=== PATIENT | male | born 1955 | race Caucasian/White ===

== ENCOUNTER 2018-07-21 01:56 | Inpatient (IN) | payer BC ==
[~2018-07-21] VITALS: Ht 177.8 cm; Wt 86.2 kg
[2018-07-21] MEDS ORDERED: ENAL1TAB35 PO (02:09)
[2018-07-21] MEDS ORDERED: DULA1.5P IM (02:09)
[2018-07-21] MEDS ORDERED: FLUT1DIS28 IH (02:09)
[2018-07-21] MEDS ORDERED: TAMS0.4C25 PO (02:09)
[2018-07-21] MEDS ORDERED: NS(*) 0.9% 1000 ML BAG 1,000 ML IV ONE (02:26)
[2018-07-21] MEDS ORDERED: ONDANSETRON 4 MG/2 ML VIAL IVP ONE (02:30)
[2018-07-21] MEDS ORDERED: HYDROMORPHONE HCL 1 MG/ML SYRINGE IVP ONE ×2 (02:30→05:35)
--- NOTE | 2018-07-21 02:32 | ER Report ---
History and Physical Time Seen By MD: 02:13 Hx. of Stated Complaint: PT HAS HX OF BOWEL OBSTRUCTIONS AND REPORTS FEELING THE SAME WAY. PT REPORTS VOMITING AT HOME. HPI/ROS CHIEF COMPLAINT: vomiting and abdominal pain, worried about possible bowel obstruction. HISTORY OF PRESENT ILLNESS: This is a 62 year old male. Had some pain in abdomen and nausea a few days ago. This went away, then suddenly came back tonight. Had sudden onset of pain and vomiting. Pain in lower abdomen, worse on left lower area. Had a large bowel movement at the same time. Normal urination. No fevers or chills. Still nauseated, but less. Seems similar to prior bowel obstructions. Has had several surgeries, the last was lysis of adhesions for obstruction. Last bowel obstruction just treated conservatively and resolved without need for surg chaya. Traveling home to [place] from visiting matteo carbajal in [place]. Allergies: Coded Allergies: No Known Drug Allergies (Unverified , 07/21/18) Home Meds Reported Medications Fluticasone/Salmeterol (ADVAIR 250-50 DISKUS) 1 Each Disk.w.dev, 1 EACH IH BID 07/21/18 Enalapril/Hydrochlorothiazide (ENALAPRIL-HCTZ 10-25 MG TABLET) 1 Each Tablet, 1 EACH PO QDAY 07/21/18 Tamsulosin Hcl (FLOMAX) 0.4 Mg Cap.er.24h, 0.4 MG PO BID, CAP 07/21/18 Dulaglutide (Trulicity) 1.5 Mg/0.5 Ml Pen.injctr, 1 PEN IM DIRECTED 07/21/18 Reviewed Nurses Notes: Yes Hx Substance Use Disorder: No Hx Alcohol Use: No Constitutional Vital Sign - Last 24 Hours 07/21/18 07/21/18 07/21/18 07/21/18 02:00 02:00 02:11 02:30 Temp 98.2 Pulse 82 87 Resp 18 B/P (MAP) 123/83 (96) 123/83 135/79 (97) Pulse Ox 92 90 O2 Delivery Room Air 07/21/18 07/21/18 07/21/18 07/21/18 02:47 02:56 03:00 03:26 Pulse 82 74 B/P (MAP) 117/79 (92) Pulse Ox 93 97 O2 Flow Rate 2.0 07/21/18 07/21/18 07/21/18 07/21/18 03:30 04:00 04:20 04:30 B/P (MAP) 116/76 (89) 121/79 (93) 108/74 (85) Pulse Ox 92 07/21/18 07/21/18 07/21/18 04:50 05:00 05:05 Pulse 75 72 B/P (MAP) 114/75 (88) Pulse Ox 94 94 Physical Exam General Appearance: The patient is alert. No acute distress. Eyes: Pupils are equal, round. No pallor, injection or icterus. ENT: Mucous membranes are moist. Normal oral mucosa. Posterior oropharynx is normal. Neck: Supple and non tender. Respiratory: Lungs are clear to auscultation. Cardiovascular: Regular rate and rhythm. No murmurs, gallops or rubs. Normal capillary refill. Gastrointestinal: Abdomen is soft, but somewhat distended. Has pain in lower abdomen, with some slight rebound and guarding. Hyperactive bowel sounds. Neurological: Alert and oriented x3. No focal neurologic deficits Skin: Warm and dry. DIFFERENTIAL DIAGNOSIS: After history and physical exam, differential diagnosis was considered for patient with abdominal pain and vomiting, history of bowel obstructions, feels like this again and we'll need to rule out various causes of abdominal pain and vomiting. Medical Decision Making Data Points Result Diagram: 07/21/18 0237 07/21/18 0237 Laboratory Hematology Test 07/21/18 02:37 07/21/18 03:15 Red Blood Count 5.38 M/uL (4.00-5.60) Mean Corpuscular Volume 87.1 fL (80.0-96.0) Mean Corpuscular Hemoglobin 29.7 pg (26.0-33.0) Mean Corpuscular Hemoglobin Concent 34.1 g/dL (32.0-36.0) Red Cell Distribution Width 16.5 % (11.5-14.5) Mean Platelet Volume 7.5 fL (7.2-11.1) Neutrophils (%) (Auto) 86.6 % (39.4-72.5) Lymphocytes (%) (Auto) 6.1 % (17.6-49.6) Monocytes (%) (Auto) 5.2 % (4.1-12.4) Eosinophils (%) (Auto) 1.3 % (0.4-6.7) Basophils (%) (Auto) 0.8 % (0.3-1.4) Nucleated RBC Relative Count (auto) 0.1 /100WBC Neutrophils # (Auto) 13.8 K/uL (2.0-7.4) Lymphocytes # (Auto) 1.0 K/uL (1.3-3.6) Monocytes # (Auto) 0.8 K/uL (0.3-1.0) Eosinophils # (Auto) 0.2 K/uL (0.0-0.5) Basophils # (Auto) 0.1 K/uL (0.0-0.1) Nucleated RBC Absolute Count (auto) 0.01 K/uL Sodium Level 140 mmol/L (137-145) Potassium Level 3.8 mmol/L (3.5-5.0) Chloride Level 101 mmol/L (98-107) Carbon Dioxide Level 25 mmol/L (22-30) Blood Urea Nitrogen 29 mg/dl (9-21) Creatinine 1.00 mg/dl (0.66-1.25) Glomerular Filtration Rate Calc > 60.0 Random Glucose 114 mg/dl (75-110) Calcium Level 9.9 mg/dl (8.4-10.2) Total Bilirubin 0.4 mg/dl (0.2-1.3) Aspartate Amino Transf (AST/SGOT) 17 U/L (0-35) Alanine Aminotransferase (ALT/SGPT) 18 U/L (0-56) Alkaline Phosphatase 80 U/L (0-126) Total Protein 8.7 g/dl (6.3-8.2) Albumin 4.9 g/dl (3.5-5.0) Amylase Level 131 U/L (0-110) Lipase 149 U/L (23-300) Urine Color Yellow Urine Clarity Clear Urine pH 5.0 pH (4.8-9.5) Urine Specific [place] 1.035 Urine Protein Negative mg/dL (NEGATIVE) Urine Glucose (UA) 500 mg/dL (NEGATIVE) Urine Ketones Negative mg/dL (NEGATIVE) Urine Blood Negative (NEGATIVE) Urine Nitrite Negative (NEGATIVE) Urine Bilirubin Negative (NEGATIVE) Urine Urobilinogen 2.0 mg/dL (0.2-1.9) Urine Leukocyte Esterase Negative (NEGATIVE) Urine RBC 1 /HPF (0-2/HPF) Urine WBC 1 /HPF (0-5/HPF) Urine Squamous Epithelial Cells None /LPF (</=FEW) Urine Bacteria Negative /HPF (NONE-FEW) Urine Mucus None /HPF (NONE-FEW) Chemistry Test 07/21/18 02:37 07/21/18 03:15 White Blood Count 15.9 k/uL (4.5-11.0) Red Blood Count 5.38 M/uL (4.00-5.60) Hemoglobin 16.0 g/dL (14.0-18.0) Hematocrit 46.9 % (42.0-52.0) Mean Corpuscular Volume 87.1 fL (80.0-96.0) Mean Corpuscular Hemoglobin 29.7 pg (26.0-33.0) Mean Corpuscular Hemoglobin Concent 34.1 g/dL (32.0-36.0) Red Cell Distribution Width 16.5 % (11.5-14.5) Platelet Count 244 K/uL (150-450) Mean Platelet Volume 7.5 fL (7.2-11.1) Neutrophils (%) (Auto) 86.6 % (39.4-72.5) Lymphocytes (%) (Auto) 6.1 % (17.6-49.6) Monocytes (%) (Auto) 5.2 % (4.1-12.4) Eosinophils (%) (Auto) 1.3 % (0.4-6.7) Basophils (%) (Auto) 0.8 % (0.3-1.4) Nucleated RBC Relative Count (auto) 0.1 /100WBC Neutrophils # (Auto) 13.8 K/uL (2.0-7.4) Lymphocytes # (Auto) 1.0 K/uL (1.3-3.6) Monocytes # (Auto) 0.8 K/uL (0.3-1.0) Eosinophils # (Auto) 0.2 K/uL (0.0-0.5) Basophils # (Auto) 0.1 K/uL (0.0-0.1) Nucleated RBC Absolute Count (auto) 0.01 K/uL Glomerular Filtration Rate Calc > 60.0 Calcium Level 9.9 mg/dl (8.4-10.2) Total Bilirubin 0.4 mg/dl (0.2-1.3) Aspartate Amino Transf (AST/SGOT) 17 U/L (0-35) Alanine Aminotransferase (ALT/SGPT) 18 U/L (0-56) Alkaline Phosphatase 80 U/L (0-126) Total Protein 8.7 g/dl (6.3-8.2) Albumin 4.9 g/dl (3.5-5.0) Amylase Level 131 U/L (0-110) Lipase 149 U/L (23-300) Urine Color Yellow Urine Clarity Clear Urine pH 5.0 pH (4.8-9.5) Urine Specific [place] 1.035 Urine Protein Negative mg/dL (NEGATIVE) Urine Glucose (UA) 500 mg/dL (NEGATIVE) Urine Ketones Negative mg/dL (NEGATIVE) Urine Blood Negative (NEGATIVE) Urine Nitrite Negative (NEGATIVE) Urine Bilirubin Negative (NEGATIVE) Urine Urobilinogen 2.0 mg/dL (0.2-1.9) Urine Leukocyte Esterase Negative (NEGATIVE) Urine RBC 1 /HPF (0-2/HPF) Urine WBC 1 /HPF (0-5/HPF) Urine Squamous Epithelial Cells None /LPF (</=FEW) Urine Bacteria Negative /HPF (NONE-FEW) Urine Mucus None /HPF (NONE-FEW) Urinalysis Test 07/21/18 03:15 Urine Color Yellow Urine Clarity Clear Urine pH 5.0 pH (4.8-9.5) Urine Specific [place] 1.035 Urine Protein Negative mg/dL (NEGATIVE) Urine Glucose (UA) 500 mg/dL (NEGATIVE) Urine Ketones Negative mg/dL (NEGATIVE) Urine Blood Negative (NEGATIVE) Urine Nitrite Negative (NEGATIVE) Urine Bilirubin Negative (NEGATIVE) Urine Urobilinogen 2.0 mg/dL (0.2-1.9) Urine Leukocyte Esterase Negative (NEGATIVE) Urine RBC 1 /HPF (0-2/HPF) Urine WBC 1 /HPF (0-5/HPF) Urine Squamous Epithelial Cells None /LPF (</=FEW) Urine Bacteria Negative /HPF (NONE-FEW) Urine Mucus None /HPF (NONE-FEW) EKG/Imaging Imaging EXAMINATION: Abdomen and pelvis CT with contrast HISTORY: Vomiting, lower abdominal pain, history of bowel obstruction TECHNIQUE: CT was performed through the abdomen and pelvis following injection of iodinated intravenous contrast. Sagittal and coronal MPR reformatted images were generated. 75 mL isovue 370 injected. One of the following dose optimization techniques was utilized in the performance of this exam: automated exposure control; adjustment of the mA and/or kV according to patient size; or use of iterative reconstruction technique. Specific details can be referenced in the facility's radiology CT exam operational policy. COMPARISON: None. FINDINGS: Lower chest: Normal. Spleen: Normal. Adrenal glands: Normal. Pancreas: Normal. Kidneys: Small left renal cyst, otherwise normal. Gallbladder: Surgically absent. Liver: Mild intrahepatic biliary dilatation related to absence of the g allbladder. Otherwise unremarkable. Vessels: Normal for age. Lymph node assessment: Normal. Bowel including small bowel, colon and appendix: Normal stomach. Mild short segment dilatation of small bowel loops in the left midabdomen, image 69, right midabdomen, image 90 and upper pelvis, image 113. Decompressed lower abdomen small bowel loops adjacent to hernia repair material along the anterior right abdomen. Appendix not identified. Moderate volume colonic stool. Normal colon. Peritoneum / retroperitoneum / mesentery: Normal. Pelvic structures: Normal bladder. Small fat-containing left inguinal hernia. Enlarged prostate gland measures 6 cm transverse. Normal rectum. No pelvic fluid or adenopathy. Body wall: Postsurgical scar along the anterior right abdominal subcutaneous fat. Hernia repair material along the right anterior abdominal wall is partially positioned in the anterior abdominal cavity positioned adjacent to small bowel loops. Musculoskeletal: Mild chronic L1 and L3 wedge compression deformities. Severe L4-5 disc space degeneration. Mild convexity left lumbar scoliosis. IMPRESSION: 1. Mild scattered short segment small bowel dilatation which may represent areas of normal linda bowel which were mildly dilated at the time of imaging. A developing small bowel obstruction cannot be entirely excluded. 2. Hernia repair material along the anterior abdomen. 3. Enlarged prostate gland measures 6 cm. 4. Surgically absent gallbladder. Report Dictated By: Liu Braxton MD at 07/21/2018 3:36 AM ED Course/Re-evaluation Clinical Indication for ER IV: Hydration, IV Access ED Course Given Dilaudid and Zofran to help with pain and nausea. CT scan and labs obtained. Slight elevation of white count with shift, BUNs slightly elevated, electrolytes negative. CT scan shows some loops of dilated bowel with intermittent decompress bowel, no definitive spot of obstruction, could represent early obstruction. Discussed this with the patient. Discussed with Dr. Murdock and will admit for conservative management and Dr. Marie will see the patient on the medical floor. We will place an NG tube and keep the patient nothing by mouth with fluids, pain control, nausea control. Decision to Disposition Date: Jul 21, 2018 Decision to Disposition Time: 05:04 Depart Departure Latest Vital Signs Vital Signs Date Time Temp Pulse Resp B/P (MAP) Pulse Ox O2 Delivery O2 Flow Rate FiO2 07/21/18 05:05 72 94 07/21/18 05:00 114/75 (88) 07/21/18 02:47 2.0 07/21/18 02:00 98.2 18 Room Air Impression: Primary Impression: Small bowel obstruction Condition: Improved Disposition: Admitted from ER STAS SIMONS MD Jul 21, 2018 02:32
[2018-07-21] MEDS ORDERED: IOPAMIDOL 76% 100 ML INFUS BTL 100 ML ONE (02:52)
[2018-07-21 02:55] LABS: PLATELET COUNT, AUTOMATED 244 K/uL (150-450)
--- NOTE | 2018-07-21 03:56 | RADIOLOGY IMAGING REPORT ---
FACILITY: [facility] PATIENT NAME: Emeterio Dia : 1955 MR: [id number] V: [id number] EXAM DATE: ORDERING PHYSICIAN: STAS SIMONS TECHNOLOGIST: Location: [facility] [place] Patient: Emeterio Dia : 1955 Visit/Account:[id number] Date of Sevice: 07/21/2018 EXAMINATION: Abdomen and pelvis CT with contrast HISTORY: Vomiting, lower abdominal pain, history of bowel obstruction TECHNIQUE: CT was performed through the abdomen and pelvis following injection of iodinated intrave nous contrast. Sagittal and coronal MPR reformatted images were generated. 75 mL isovue 370 injected . One of the following dose optimization techniques was utilized in the performance of this exam: autom ated exposure control; adjustment of the mA and/or kV according to patient size; or use of iterative reconstruction technique. Specific details can be referenced in the facility's radiology CT exam ope rational policy. COMPARISON: None. FINDINGS: Lower chest: Normal. Spleen: Normal. Adrenal glands: Normal. Pancreas: Normal. Kidneys: Small left renal cyst, otherwise normal. Gallbladder: Surgically absent. Liver: Mild intrahepatic biliary dilatation related to absence of the gallbladder. Otherwise unremark able. Vessels: Normal for age. Lymph node assessment: Normal. Bowel including small bowel, colon and appendix: Normal stomach. Mild short segment dilatation of sma ll bowel loops in the left midabdomen, image 69, right midabdomen, image 90 and upper pelvis, image 1 13. Decompressed lower abdomen small bowel loops adjacent to hernia repair material along the anterio r right abdomen. Appendix not identified. Moderate volume colonic stool. Normal colon. Peritoneum / retroperitoneum / mesentery: Normal. Pelvic structures: Normal bladder. Small fat-containing left inguinal hernia. Enlarged prostate gl and measures 6 cm transverse. Normal rectum. No pelvic fluid or adenopathy. Body wall: Postsurgical scar along the anterior right abdominal subcutaneous fat. Hernia repair mater ial along the right anterior abdominal wall is partially positioned in the anterior abdominal cavity positioned adjacent to small bowel loops. Musculoskeletal: Mild chronic L1 and L3 wedge compression deformities. Severe L4-5 disc space degener ation. Mild convexity left lumbar scoliosis. IMPRESSION: 1. Mild scattered short segment small bowel dilatation which may represent areas of normal contractin g bowel which were mildly dilated at the time of imaging. A developing small bowel obstruction cannot be entirely excluded. 2. Hernia repair material along the anterior abdomen. 3. Enlarged prostate gland measures 6 cm. 4. Surgically absent gallbladder. Report Dictated By: Liu Braxton MD at 07/21/2018 3:36 AM Report E-Signed By: Liu Braxton MD at 07/21/2018 3:52 AM WSN:[id number]
[2018-07-21] MEDS ORDERED: LIDOCAINE 2% VISC SLN 15ML UDC MM ONE (04:55)
[2018-07-21 06:05] VITALS: BP 116/77
[2018-07-21] MEDS ORDERED: FLUSH 10 ML SYR IVP PRN (06:15)
[2018-07-21] MEDS ORDERED: INSULIN HUM LISPRO 100 UN/ML 3 ML VIAL SUBQ PRN (06:15)
[2018-07-21] MEDS ORDERED: ONDANSETRON 4 MG/2 ML VIAL IVP PRN (06:15)
[2018-07-21] MEDS ORDERED: FINA5TAB67 PO (06:25)
[2018-07-21] MEDS ORDERED: EMPA1TAB9 PO (06:25)
--- NOTE | 2018-07-21 07:13 | Gen Surgery History & Physical ---
History of Present Illness Chief Complaint Abdominal pain History of Present Illness 62yo male presents to the [facility] ER with abdominal pain and cramps with N/V. He is from [place], [place] and was in [place] visiting his new grandson and was travelling back through [place] on his way back home. He has a complex abdominal surgical history. He's had a lap severino and then he's had a ventral hernia repair, initially without mesh, but this recurred and then it was re-repaired in [place] with mesh. He's had several bowel obstructions, mostly managed conservatively but he did require surgical exploration with adhesiolysis in 01/2017 along with incidental appendectomy. His last surgery was 01/2018, another large, complex, ventral hernia repair with mesh in [place], [place]. He does have chronic low grade abdominal discomfort that he attributes to the hernia mesh. He also has chronic constipation that he treats with Miralax and metamucil daily with good relief and regular soft BMs. He felt ill with increased abdominal discomfort and diarrhea 4 days ago but this got a little better until after dinner last night when he had acutely worsened diffuse abdominal pain with N/V. He's been passing flatus normally and he had a large BM last night at midnight but he did also have a large emesis last night. I have admitted him for further evaluation and management. History Problems: (1) HTN (hypertension) Status: Chronic (2) DM type 2 (diabetes mellitus, type 2) Status: Chronic (3) H/O ventral hernia repair Status: Chronic (4) Hx laparoscopic cholecystectomy Status: Chronic (5) Recurrent intestinal obstruction Status: Chronic Home Meds Reported Medications Empagliflozin/Metformin HCl (Synjardy 5-1,000 mg Tablet) 5 Mg-1,000 Mg Tablet, 1 TAB PO BID 07/21/18 Finasteride (FINASTERIDE) 5 Mg Tablet, 5 MG PO QDAY 07/21/18 Fluticasone/Salmeterol (ADVAIR 250-50 DISKUS) 1 Each Disk.w.dev, 1 EACH IH BID 07/21/18 Enalapril/Hydrochlorothiazide (ENALAPRIL-HCTZ 10-25 MG TABLET) 1 Each Tablet, 1 EACH PO QDAY 07/21/18 Tamsulosin Hcl (FLOMAX) 0.4 Mg Cap.er.24h, 0.4 MG PO BID, CAP 07/21/18 Dulaglutide (Trulicity) 1.5 Mg/0.5 Ml Pen.injctr, 150 PEN IM Q7DAY 07/21/18 Allergies: Coded Allergies: No Known Drug Allergies (Unverified , 07/21/18) Review of Systems All Systems Reviewed/Normal: Yes, Except as Noted Gastrointestinal: Nausea, Vomiting, Abdominal Pain Exam General Appearance: Alert, Awake, No Acute Distress, Afebrile Neuro: No Gross deficits Eyes: PERRLA GI: Other (Soft, mild upper abdominal TTP, no mass, bulge, or peritoneal signs. Well healed vertical midline incision.) Extremities: Warm, Perfused Psych: Alert & Oriented X3, Appropriate Mood & Affect Medical Decision Making Data Points Result Diagram: 07/21/1823607/21/18236 Assessment and Plan Problems: (1) Small bowel obstruction Status: Acute Assessment & Plan: 07/21/18: CT reviewed, possible early SBO. Admit, NPO, bowel rest and decompression with NG tube, IV fluids, pain and nausea control. Will start with conservative management and would expect improvement in the next couple of days. If no improvement over the next 3 days, may require surgical exploration but this will likely be very difficult due to his previous abdominal surgical history including several ventral hernia repairs with mesh. If he's not showing improvement by tomorrow will get a water-soluble small bowel series. I have explained this plan to the patient in great detail and he seems very familiar with SBO management and he indicates that this is very consistent with how they've been managed in the past and so he's agreeable with this plan. (2) Recurrent intestinal obstruction Status: Chronic (3) H/O ventral hernia repair Status: Chronic (4) Hx laparoscopic cholecystectomy Status: Chronic (5) DM type 2 (diabetes mellitus, type 2) Status: Chronic Assessment & Plan: Start with insulin sliding scale, start PO meds when back on diet. (6) HTN (hypertension) Status: Chronic Assessment & Plan: Follow BP, restart PO meds when back on diet. Condition Stable. 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
[2018-07-21 08:43] VITALS: Ht 177.8 cm; Wt 86.2 kg
[2018-07-21] MEDS: ENOXAPARIN 40 MG/0.4ML SYR SC SCH (08:54)
[2018-07-21] MEDS: PANTOPRAZOLE SOD 40 MG IV VIAL IVP SCH (08:55)
[2018-07-21] MEDS: MORPHINE 2 MG/ML SYR IVP PRN ×4 (08:55→20:04)
[2018-07-21] MEDS: NS(*) 0.9% 1000 ML BAG 1,000 ML IV PRN ×2 (08:55→17:32)
--- NOTE | 2018-07-21 08:56 | RADIOLOGY IMAGING REPORT ---
FACILITY: [facility] [place] PATIENT NAME: Emeterio Dia : 1955 MR: [id number] V: [id number] EXAM DATE: ORDERING PHYSICIAN: SERA WHYTE TECHNOLOGIST: Location: [facility] Patient: Emeterio Dia : 1955 Visit/Account:[id number] Date of Sevice: 07/21/2018 CHEST SINGLE AP HISTORY: Line placement. COMPARISON: CT abdomen and pelvis dated 07/21/2018. FINDINGS: Lines/tubes: The enteric tube terminates in the proximal stomach. If this tube has a side port it m ay be in the distal esophagus. Lungs/pleura: Mild bibasilar atelectasis. Heart: Negative. Mediastinum: Negative. Bony structures/body wall: Negative. IMPRESSION: The enteric tube terminates in the proximal stomach. If this tube has a side port it may be in the distal esophagus. Results were called to RUCHI WHYTE at 07/21/2018 8:52 AM. Report Dictated By: Domingo Luther MD at 07/21/2018 8:09 AM Report E-Signed By: Domingo Luther MD at 07/21/2018 8:52 AM WSN:[id number]
[2018-07-21 11:29] VITALS: BP 108/77
[2018-07-21] MEDS: BENZOCAINE/MENTHOL 1 EACH LOZG PO PRN ×4 (11:36→20:04)
[2018-07-21 16:31] VITALS: BP 107/73
[2018-07-21] MEDS: SALMETEROL/FLUTIC 250/50 1 INH INH SCH (17:17)
[2018-07-21 19:15] VITALS: BP 113/79
[2018-07-21] MEDS: KCL/D1/2NS 20 MEQ 1000 ML 1,000 ML IV SCH (20:43)
[2018-07-21 23:04] VITALS: BP 122/74
[2018-07-22] MEDS: MORPHINE 2 MG/ML SYR IVP PRN ×2 (02:33→08:26)
[2018-07-22 02:36] VITALS: BP 121/80
[2018-07-22] MEDS: KCL/D1/2NS 20 MEQ 1000 ML 1,000 ML IV SCH (04:07)
[2018-07-22] MEDS: SALMETEROL/FLUTIC 250/50 1 INH INH SCH ×2 (05:15→17:08)
[2018-07-22] MEDS ORDERED: KCL/D1/2NS 20 MEQ 1000 ML 1,000 ML IV SCH (06:32)
--- NOTE | 2018-07-22 06:32 | General Surgery Progress Note ---
Subjective Progress Notes Subjective No complaints this morning. Feels like he's returning to normal. Abdominal discomfort is back to his baseline. No N/V. Passing flatus. No BM yet today. Physical Exam Vital Signs Date Time Temp Pulse Resp B/P (MAP) Pulse Ox O2 Delivery O2 Flow Rate FiO2 07/22/18 02:36 98.1 64 16 121/80 (94) 90 Nasal Cannula 0.5 Intake and Output 07/22/18 07:00 Intake Total 1071 ml Output Total 695 ml Balance 376 ml Intake Oral 70 ml IV Total 1001 ml Output Gastric Drainage Total 695 ml # Voids 3 General Appearance: Alert, Awake, No Acute Distress, Afebrile GI: Soft and Non-Tender Extremities: Warm, Perfused Result Diagram: 07/21/18 0237 07/21/18 0237 Assessment and Plan Problems: (1) Small bowel obstruction Status: Acute Assessment & Plan: 07/21/18: CT reviewed, possible early SBO. Admit, NPO, bowel rest and decompression with NG tube, IV fluids, pain and nausea control. Will start with conservative management and would expect improvement in the next couple of days. If no improvement over the next 3 days, may require surgical exploration but this will likely be very difficult due to his previous abdominal surgical history including several ventral hernia repairs with mesh. If he's not showing improvement by tomorrow will get a water-soluble small bowel series. I have explained this plan to the patient in great detail and he seems very familiar with SBO management and he indicates that this is very consistent with how they've been managed in the past and so he's agreeable with this plan.h 07/22/18: Seems to be improving. Will d/c NG tube and try clear diet today. (2) Recurrent intestinal obstruction Status: Chronic (3) H/O ventral hernia repair Status: Chronic (4) Hx laparoscopic cholecystectomy Status: Chronic (5) DM type 2 (diabetes mellitus, type 2) Status: Chronic Assessment & Plan: Start with insulin sliding scale, start PO meds when back on diet. (6) HTN (hypertension) Status: Chronic Assessment & Plan: Follow BP, restart PO meds when back on diet. Condition Stable. Time Spent: < 30 min Exam Sepsis Risk: No Definite Risk Problem Qualifiers (1) DM type 2 (diabetes mellitus, type 2): Diabetes mellitus senior care insulin use: without oil heaterman use Diabetes mellitus complication status: without complication Qualified Codes: E11.9 - Type 2 diabetes mellitus without complications (2) HTN (hypertension): Hypertension type: essential hypertension Qualified Codes: I10 - Essential (primary) hypertension SERA WHYTE MD Jul 22, 2018 06:32
[2018-07-22 06:34] LABS: PLATELET COUNT, AUTOMATED 196 K/uL (150-450)
[2018-07-22] MEDS: BENZOCAINE/MENTHOL 1 EACH LOZG PO PRN (07:17)
[2018-07-22 08:21] VITALS: BP 107/67
[2018-07-22] MEDS: PANTOPRAZOLE SOD 40 MG IV VIAL IVP SCH (08:25)
[2018-07-22] MEDS: ENOXAPARIN 40 MG/0.4ML SYR SC SCH (08:26)
--- NOTE | 2018-07-22 09:22 | Medical Nutrition Therapy ---
Nutrition Anthropometrics Height (Inches): 70.00 Height (Calculated Centimeters: 177.569816 Weight (Pounds): 190 Weight (Calculated Kilograms): 868.176 BMI: 27.3 Dimitry Nutrition Score: Excellent Dimitry Nutrition Risk Score: 21 Dietary Referral Nutrition Risk Factors: Nutrition Risk Comment: Physical Findings Physical Appearance: Overweight BMI 25-29 Skin Appearance Skin Appearance: Edema Edema Location Modifier: Edema Location: Type of Edema: Degree of Edema: Gastrointestinal Symptoms GI Symtoms: Nausea, Change in Bowel Pattern Tube Present: NG Bowel Sounds: Recent Bowel Pattern: Diarrhea Stool Characteristics: Liquid, Green Nutritional Diagnosis Nutritional Risk Acuity 1: GI Obstruction Nutritional Risk Acuity 4: Modified Diet Past Medical History: Hx of HTN, DMT2, H/O ventral hernia repair, laparoscopic cholecystectomy, recurrent intestinal obstruction. Nutritional Acuity: 1-High Nutrition Diagnosis: Inadequate Food Intake Nutrition Etiology: Physiological Causes Nutrition Problem/Etiology/Sym: Inadequate food intake related to physiological causes as evidenced by small bowel obstruction and NPO day 1. Energy Requirement: 2185 (MSJ, 1.1 TEF, 1.2 AF) Protein Requirement: 86 (1g AA/kg of BW) Fluid Requirement: 2185 (1 m/kcal) Diet Type: NPO (Nothing by Mouth) Nutrition Intervention: Incr diet as tolerated Nutrition Monitoring & Eval RD Patient Assessment Time: [address] Assessment Type: RD Assessment Patient Nutrition Acuity: 1-High Follow Up Date: Jul 23, 2018 Nutritional Comment: 07/21: Pt admitted for small bowel obstruction. Pt has a hx of HTN, DMT2, H/O ventral hernia, laparoscopic cholecystectomy, and recurrent intestinal obstruction. Pt is currently taking enoxaparin, has elevated BUN (29) and RBG (114). Pt is NPO/ice chips day 1. -ALTAF WOOD Jul 21, 2018 14:01
[2018-07-22 12:10] VITALS: BP 121/75
[2018-07-22 16:40] VITALS: BP 123/85
--- NOTE | 2018-07-22 18:01 | Short(Outpt) Discharge Summary ---
Discharge Summary Reason for Hosp/Final Diag: (1) Small bowel obstruction Status: Resolved Hospital Course & Plan: 07/21/18: CT reviewed, possible early SBO. Admit, NPO, bowel rest and decompression with NG tube, IV fluids, pain and nausea control. Will start with conservative management and would expect improvement in the next couple of days. If no improvement over the next 3 days, may require surgical exploration but this will likely be very difficult due to his previous abdominal surgical history including several ventral hernia repairs with mesh. If he's not showing improvement by tomorrow will get a water-soluble small bowel series. I have explained this plan to the patient in great detail and he seems very familiar with SBO management and he indicates that this is very consistent with how they've been managed in the past and so he's agreeable with this plan.h 07/22/18: Seems to be improving. Will d/c NG tube and try clear diet today. 07/22/18 (evening): He has done very well today. Tolerating his diet. He wants to be discharged this evening so he and his can start heading back to his home in [place], [place] tomorrow morning. He is feeling back to normal at this time. Will d/c this evening. (2) Recurrent intestinal obstruction Status: Chronic (3) H/O ventral hernia repair Status: Chronic (4) Hx laparoscopic cholecystectomy Status: Chronic (5) DM type 2 (diabetes mellitus, type 2) Status: Chronic Hospital Course & Plan: Start with insulin sliding scale, start PO meds when back on diet. (6) HTN (hypertension) Status: Chronic Hospital Course & Plan: Follow BP, restart PO meds when back on diet. Departure Discharge to: Home, Self Care Discharge Instructions Home Meds Reported Medications Empagliflozin/Metformin HCl (Synjardy 5-1,000 mg Tablet) 5 Mg-1,000 Mg Tablet, 1 TAB PO BID 07/21/18 Finasteride (FINASTERIDE) 5 Mg Tablet, 5 MG PO QDAY 07/21/18 Fluticasone/Salmeterol (ADVAIR 250-50 DISKUS) 1 Each Disk.w.dev, 1 EACH IH BID 07/21/18 Enalapril/Hydrochlorothiazide (ENALAPRIL-HCTZ 10-25 MG TABLET) 1 Each Tablet, 1 EACH PO QDAY 07/21/18 Tamsulosin Hcl (FLOMAX) 0.4 Mg Cap.er.24h, 0.4 MG PO BID, CAP 07/21/18 Dulaglutide (Trulicity) 1.5 Mg/0.5 Ml Pen.injctr, 150 PEN IM Q7DAY 07/21/18 Diet: Regular Activity: As Tolerated Special Instructions: Start with regular foods but eat slow and stop if you become nauseated or bloated or your abdominal pain increases. Go to the nearest Emergency Room if your abdominal symptoms worsen. Problem Qualifiers (1) DM type 2 (diabetes mellitus, type 2): Diabetes mellitus long-term insulin use: without superintendent container terminal use Diabetes mellitus complication status: without complication Qualified Codes: E11.9 - Type 2 diabetes mellitus without complications (2) HTN (hypertension): Hypertension type: essential hypertension Qualified Codes: I10 - Essential (primary) hypertension SERA WHYTE MD Jul 22, 2018 18:01
== END 2018-07-22 18:15 | disposition home or self-care (01) | DRG 390 ==
LOC: ER 02:25 → ICU 05:17 → MED 17:20
PROVIDERS: ADMIT Surgery; ATTEND Surgery
PROC: 0D9670Z Drainage of Stomach with Drainage Device, Via Natural or Artificial Opening (ICD-10-PCS; principal; 2018-07-21)
DX: K56.609 Unspecified intestinal obstruction, unspecified as to partial versus complete obstruction (principal); I10 Essential (primary) hypertension; E11.9 Type 2 diabetes mellitus without complications; Z90.49 Acquired absence of other specified parts of digestive tract; Z79.84 Long term (current) use of oral hypoglycemic drugs
CPT/HCPCS: 36415; 36416; 71045; 74177; 81001; 82040; 82150; 82247; 82310; 82374; 82435; 82565; 82947; 82948; 83690; 84075; 84132; 84155; 84295; 84450; 84460; 84520; 85025; 94640; 96361; 96374; 96375; 96376; 99284; C9113; J1170; J1650; J2270; J2405; J3480; J7030; Q9967